=== PATIENT | female | born 1940 | race Caucasian/White ===

== ENCOUNTER → 2018-02-23 | Outpatient (REF) | payer MEDICARE, BC | LOC: M LAB REF 16:37 | DX: R30.0 Dysuria (principal) | CPT/HCPCS: 87186 ==

== ENCOUNTER 2021-05-14 13:00 | Outpatient (RCR) | payer MEDICARE | END 2021-05-19 | LOC: M PT 13:00 | DX: M54.5 Low back pain (principal); M25.559 Pain in unspecified hip ==

== ENCOUNTER 2021-05-31 11:00 | Outpatient (RCR) | payer MEDICARE | END 2021-06-19 | LOC: M PT 11:00 | DX: M54.5 Low back pain (principal); M25.559 Pain in unspecified hip ==